=== PATIENT | male | born 1965 ===

== ENCOUNTER 2017-02-02 16:41 | Emergency (ER) | payer SELFPAY ==
[2017-02-02 16:52] VITALS: BP 137/93; PULSE 99; RESP 18; TEMP 98.2; O2SAT 98
[2017-02-02] MEDS ORDERED: Sodium Chloride 0.9% 1,000 ML IV STA (17:18)
[2017-02-02 17:49] LABS: BASO # 0.1 K/uL (0.0-0.2); BASO % 1.7 % (0.0-2.0); EOS # 0.1 K/uL (0.0-0.7); EOS % 1.2 % (0.0-4.0); HEMATOCRIT 44.3 % (35.0-51.0); LYMPH # 2.2 K/uL (1.0-4.3); LYMPH % 31.4 % (20.0-40.0); MEAN CELL VOLUME 85.6 fl (80.0-94.0); MEAN CORPUSCULAR HEMOGLOBIN 29.7 pg (27.0-31.0); MEAN CORPUSCULAR HGB CONC 34.7 g/dL (33.0-37.0); MEAN PLATELET VOLUME 10.1 fl (7.2-11.7); MONO # 0.4 K/uL (0.0-0.8); NEUT # 4.2 K/uL (1.8-7.0); NEUT % 59.7 % (50.0-75.0); NRBC % 0.1 % (0.0-0.0); RED CELL DISTRIBUTION WIDTH 13.2 % (11.5-14.5)
[2017-02-02 17:55] LABS: ALB/GLOB RATIO 1.4 (1.0-2.1); ALCOHOL SERUM 194 mg/dl (0-10); ALKALINE PHOSPHATASE 103 U/L (38-126); ALT/SGPT 51 U/L (21-72); AST/SGOT 32 U/L (17-59); BILIRUBIN,TOTAL 0.5 mg/dl (0.2-1.3); BLOOD UREA NITROGEN 18 mg/dl (9-20); CARBON DIOXIDE 21 mmol/L (22-30); CHLORIDE 104 mmol/L (98-107); GFR AFRICAN-AMERICAN > 60; GLUCOSE,RANDOM 303 mg/dL (75-110); POTASSIUM 3.7 MMOL/L (3.6-5.0); SODIUM 140 mmol/l (132-148); TOTAL PROTEIN 8.1 G/DL (6.3-8.2)
--- NOTE | 2017-02-02 18:03 | ED PDOC ---
HPI: Psych/Substance Abuse Time Seen by Provider: 02/02/17 16:54 Chief Complaint (Nursing): Alcohol Ingestion History Per: Patient, EMS, [employer]uttle [employer] ([employer]) Additional Complaint(s): As per SERGEY Ann, who took report from EMS pt. walked up to EMS saying that he felt sick and had AOB. Pt. states for the past 5 months he's had L sided neck pain. States he has trouble opening his mouth when he gets the pain. Denies fever, trauma. Also reports that he is a DM but has not taken his meds in 3 weeks as he has depleted his supply. Also states he used to be an alcoholic and has not had a drink in 3 months up until today when he had 6 beers. Denies fever , trauma, head injury, headache, abdominal pain. Past Medical History Reviewed: Historical Data, Nursing Documentation, Vital Signs Vital Signs: Last Vital Signs Temp 98.2 F 02/02/17 16:48 Pulse 99 H 02/02/17 16:48 Resp 18 02/02/17 16:48 BP 137/93 H 02/02/17 16:48 Pulse Ox 98 02/02/17 16:48 - Medical History PMH: Diabetes, HTN, Hypercholesterolemia - Surgical History Surgical History: No Surg Hx - Family History Family History: States: Unknown Family Hx - Home Medications Home Medications: Ambulatory Orders Medication Instructions Recorded metFORMIN [glucOPHAGE] 850 mg PO DAILY #10 tab 02/02/17 - Allergies Allergies/Adverse Reactions: Allergies Allergy/AdvReac Type Severity Reaction Status Date / Time No Known Allergies Allergy Verified 02/02/17 16:48 Review of Systems Review Of Systems: ROS cannot be obtained secondary to pt's inabilty to answer questions. Physical Exam - Reviewed Nursing Documentation Reviewed: Yes Vital Signs Reviewed: Yes - Physical Exam Appears: Positive for: Well, Non-toxic, No Acute Distress Head Exam: Positive for: ATRAUMATIC, NORMAL INSPECTION, NORMOCEPHALIC Skin: Positive for: Normal Color, Warm, DRY Eye Exam: Positive for: EOMI, Normal appearance, PERRL ENT: Positive for: Normal ENT Inspection Neck: Positive for: Normal, Painless ROM Cardiovascular/Chest: Positive for: Regular Rate, Rhythm Respiratory: Positive for: CNT, Normal Breath Sounds Gastrointestinal/Abdominal: Positive for: Normal Exam, Bowel Sounds, Soft Back: Positive for: Normal Inspection Extremity: Positive for: Normal ROM Neurologic/Psych: Positive for: Alert, Oriented, Other. Negative for: Aphasia, Facial Droop - Laboratory Results Result Diagrams: 02/02/17 17:36 02/02/17 17:36 - ECG O2 Sat by Pulse Oximetry: 98 - Progress ED Course And Treament: C-spine x-ray: no bony abnormality 2227 On re-evaluation, pt. in no distress. AOx3. Pt. states he takes Metformin 850mg once a day. Denies trauma, head injury, fever, chest pain. Offers no complaints at this time. Disposition - Clinical Impression Clinical Impression: Alcohol intoxication, Medication refill - Patient ED Disposition Is Patient to be Admitted: No - Disposition Referrals: [facility] [Outside] Disposition: Routine/Home Disposition Time: 22:28 Condition: IMPROVED Prescriptions: metFORMIN [glucOPHAGE] 850 mg PO DAILY #10 tab Instructions: Alcohol Intoxication (ED), Medicine Refill (ED) Forms: [facility] ([place])
[2017-02-02 18:45] LABS: RBC URINE 1 /hpf (0-3); URINE BILIRUBIN NEGATIVE (NEGATIVE); URINE BLOOD NEGATIVE (NEGATIVE); URINE COLOR STRAW (YELLOW); URINE GLUCOSE (UA) >=500 mg/dL (Normal); URINE KETONE NEGATIVE (NEGATIVE); URINE LEUKOCYTE ESTERASE NEG Leu/uL (Negative); URINE PROTEIN NEGATIVE (NEGATIVE); URINE UROBILINOGEN 0.2-1.0 mg/dL (0.2-1.0); WBC URINE < 1 /hpf (0-5)
--- NOTE | 2017-02-03 09:00 | RAD ---
PROCEDURE: Cervical Spine Radiographs. HISTORY: Pain. COMPARISON: None. FINDINGS: BONES: Straightening of the normal lordosis. No fracture. Dens Intact. DISC SPACES: Normal. SOFT TISSUES: Normal. No prevertebral soft tissue swelling. OTHER FINDINGS: None. IMPRESSION: Straightening of the normal cervical lordosis may be secondary to positioning/ spasm. Otherwise, unremarkable cervical spine radiographs.
== END 2017-02-02 23:12 | disposition home or self-care (01) ==
LOC: H.ER 16:41
DX: F10.129 Alcohol abuse with intoxication, unspecified (principal); Z76.0 Encounter for issue of repeat prescription; E11.9 Type 2 diabetes mellitus without complications; Z79.84 Long term (current) use of oral hypoglycemic drugs; E78.00 Pure hypercholesterolemia, unspecified; I10 Essential (primary) hypertension; M53.82 Other specified dorsopathies, cervical region
CPT/HCPCS: 72040; 80053; 81003; 82948; 85025; 99282; G0480; J7040